=== PATIENT | male | born 1990 | race Caucasian/White ===

== ENCOUNTER 2017-05-03 16:55 | Inpatient (IN) | payer OTHER ==
[~2017-05-03] VITALS: Ht 172.7 cm; Wt 64.5 kg
[~2017-05-03 16:55] MED LIST: CONCERTA36 MG PO; ESCITALOPRAM OX10 MG PO; HYDROXYZINE HCL25 MG PO; NORCO 5-325 TA1 EACH PO
--- NOTE | 2017-05-03 19:13 | NUR ---
DIRECT ADMIT FROM ALISSA'S OFFICE. ABSCESS RIGHT LOWER FACE. IND IN ROOM. IVF AT TKO. MERREM AND VANCO. WARM WET CLOTH TO FACE. DIFLUCAN PO. DILAUDID 8MG PO GIVEN FOR PAIN. NPO AT MIDNIGHT.
--- NOTE | 2017-05-03 19:40 | NUR ---
IN TO SEE PT, PT IN BED, IV INFUSING, VISITOR AT [facility]. CALL LIGHT WITHIN REACH.
--- NOTE | 2017-05-03 19:40 | NUR ---
IN TO MEET PT AND REC REPORT, PT IN BED, STATES PAIN IS BETTER SINCE REC DILAUDID FROM DAY SHIFT RN. VISITER AT BEDSIDE. CALL LIGHT WITHIN REACH.
--- NOTE | 2017-05-03 22:30 | NUR ---
CALL FROM DR. MAXWELL TO UPDATE ON PAIN. INFORMED DR. MAXWELL THAT PT WAS GIVEN A TOTAL OF 8 MG OF DILAUDID FOR DAY SHIFT RN WHICH PT STATES "HELPED A LOT", PT RATED HIS PAIN A 5/10. CONFIRMED IV ABX WERE GIVEN AND GIVEN RESULTS OF WBC. ADVISED DR. MAXWELL THAT PT'S PAIN WAS INCREASING WHEN CHECK ON THE PT AT 2210. PT RATES PAIN A 7/10 AT 2210. RN IN TO GIVE DILAUDID 8 MG AT 2230.
--- NOTE | 2017-05-04 00:56 | NUR ---
IN TO REASSES PT PAIN, PT RATES PAIN A 5/10. PT STATES " PAIN MEDICATION HELPED A LOT WITH MY PAIN". VISITOR LAYING IN BED WITH PT WATCHING TV. PT NOTES THAT ABCESS ON JAW HAS STARTED TO DRAIN. PT HAS BEEN USING HOT COMPRESSES CHANGED BY VISITOR. ADVISED THAT VISITOR SHOULD HANDLE COMPRESSES WITH GLOVES DUE TO SPREAD OF INFECTION. PT AND VISITOR UNDERSTOOD. NO FURTHER NEEDS AT THIS TIME, CALL LIGHT WITHIN REACH.
--- NOTE | 2017-05-04 01:36 | NUR ---
IN TO START ABX, PT RESTING IN BED WATCHING TV, VISITOR IN BED WITH PT, PT ALERT AND PLEASENT. NO APPARENT DISTRESS. FRIENDLY. DISCUSSED NEED FOR NPO STATUS AT [place], PT UNDERSTOOD. PT ASK IF OKAY TO USE CHEWING TABACCO, RN ADVISED NOT OKAY TO USE TABACCO. PT UNDERSTOOD AND STATES HE WILL REFRAIN. RN OFFERED NICOTEINE ALTERNATIVE, PT DECLINED. NO FURTHER NEEDS AT THIS TIME. CALL LIGHT WITHIN REACH.
--- NOTE | 2017-05-04 02:50 | NUR ---
pt resting quietly, appears asleep, rr wnl and unlabored. pt sleeping in hospital bed with girlfriend. lights off and tv on in room.
--- NOTE | 2017-05-04 05:14 | NUR ---
PT HAD UNEVENTFUL SHIFT, IVF AND IV ABX ADMINISTERED. PT GIVEN DILAUDID 8 MG PO AT 2230 FOR FACIAL PAIN, NO FURTHER PAIN MEDICATION REQUIRED. AFIBRILE THROUGHOUT THE SHIFT. R SIDED FACIAL REDNESS AND SWELLING IMPROVED, DRAINAGE PRESENT. WARM COMPRESSES APPLIED WHILE AWAKE. NPO AT AR INCASE OF NEED FOR I&D.
--- NOTE | 2017-05-04 07:35 | NUR ---
RECEIVED BEDSIDE REPORT FROM POPPY/DUANE RN. SWELLING IN RIGHT FACE PRESENT. GIRLFRIEND SLEEPING IN BED WITH PATIENT. EDUCATED ON INFECTION CONTROL. ERNA AND YOHANA PLANNED TO CONTINUE TODAY. WILL AWAIT DR MAXWELL TO KNOW PLAN FOR DAY. SURGERY VS. ABX. NPO NOW.
--- NOTE | 2017-05-04 09:15 | NUR ---
MED REC COMPLETE--PER PATIENT
--- NOTE | 2017-05-04 10:34 | NUR ---
PT BACK TO FLOOR FROM CT SCAN AT 1030. ANXIOUS TO TAKE A SHOWER. C/O FEELING COLD AFTER CT SCAN. WARM BLANKET PROVIDED.
--- NOTE | 2017-05-04 12:00 | NUR ---
PT RESTING IN BED WITH HIS GIRL FRIEND BY HIS SIDE. HE RECOUNTED TO ME HIS STORY, AND HOW HE FELT IT WAS MORE THAN ACNE. IT BEGAN TO SWELL AND ACHE. DR MAXWELL SENT HIM A DIRECT ADMIT FROM HIS OFFICE. PAIN GOES DOWN INTO HIS NECK. HE SEEMS ALITTLE BORED ALREADY. HIS MOTHER WAS BY EARLIER. WILL CONTINUE TO FOLLOW NEEDED
--- NOTE | 2017-05-04 13:38 | NUR ---
DR. MAXWELL IN TO SEE PATIENT. PATIENT TO HAVE I & D TODAY.
--- NOTE | 2017-05-04 13:46 | NUR ---
IV MERRUM INFUSING FOR 3 HOURS, PER DR. MAXWELL. PATIENT IN TO DO PRE-SURGICAL WIPE DOWN.
--- NOTE | 2017-05-04 13:56 | NUR ---
PATIENT UP TO BATHROOM WITH HIBA CLEANSE. ORAL CARE DONE. LINEN CHANGED.
--- NOTE | 2017-05-04 14:07 | NUR ---
PATIENT TO SURGERY, BRI LAFLEUR SENT WITH STRAIGHT TUBING. PATIENT TRANSPORTED VIA WHEELCHAIR.
--- NOTE | 2017-05-04 14:08 | NUR ---
pt off floor for procedure at 1400
--- NOTE | 2017-05-04 15:02 | NUR ---
05/04/17 1502 Caroline Mac [id number] PATIENT ARRIVES TO PACU AWAKE, ALERT AND ORIENTED X3. RESP EVEN AND UNLABORED. MASK AT 6 LITERS. PATIENT TOOK HIS MASK OFF, 100% ON ROOM AIR. PATIENT ALSO C/O BEING COLD, WARM BLANKETS AND BEAR HUGGER ON .
--- NOTE | 2017-05-04 16:00 | NUR ---
pt back to room 114 at 1555. pain controlled well now. continuous pulse ox in place. o2 sat 99% on room air. dressing to right face in place. pt not hungry now but will try apple juice and water.
--- NOTE | 2017-05-04 18:06 | NUR ---
PT IND IN ROOM. YOHANA UMANZOR. IVF AT TKO. GIRLFRIEND AT BEDSIDE. PACKING IN ABSCESS OF RIGHT FACE. COVERED WITH DRESSING. TEE X1.
--- NOTE | 2017-05-04 19:45 | NUR ---
IN TO SEE PT, PT RESTING IN BED. PT REQUEST ICE CREAM. STATES HIS NAUSEA IS BETTER. NO FURTHER NEEDS AT THIS TIME. CALL LIGHT WITHIN REACH.
--- NOTE | 2017-05-04 21:45 | NUR ---
pt rates pain at 6/10, gave dilaudid po for pain.
--- NOTE | 2017-05-04 22:48 | NUR ---
IN TO CHECK ON PT, PT IN BED RESTING WATCHING TV, GF IN BED WITH PT. NO FUTHER NEEDS AT THIS TIME. CALL LIGHT WITHIN REACH.
--- NOTE | 2017-05-05 00:38 | NUR ---
IN TO CHECK ON PT, PT APPEARS TO BE SLEEPING ON THE RT SIDE OF FACE, IV INFUSING. PT'S GF SLEEPING IN BED WITH PT. CALL LIGHT IN PLACE.
--- NOTE | 2017-05-05 01:53 | NUR ---
IN TO CHECK ON PT, IV ABX STARTED, PAIN MEDICATION GIVEN, ICE CREAM REQUESTED AND GIVEN. NO FURTHER NEEDS AT THIS TIME. CALL LIGHT WITHIN REACH.
--- NOTE | 2017-05-05 04:03 | NUR ---
IN TO CHECK ON PT, PT APPEARS TO BE SLEEPING, NO APPARENT DISTRESS. IV INFUSING, CALL LIGHT WITHIN REACH.
--- NOTE | 2017-05-05 05:01 | NUR ---
PT RESTING THROUGH OUT THE SHIFT. DILAUDID PO GIVEN FOR PAIN. NO NAUSEA. DRSG INTACT. IVF AND ABX ADMINISTERED. PT UP TO THE BATHROOM WITH NO ASSIST. AFIBRILE. GF AT BEDSIDE.
--- NOTE | 2017-05-05 07:40 | NUR ---
Patient laying in bed with girlfriend by his side. patient states he isn't hungry. patient had two ice creams and apple juice this am. patient given an ensure to drink. Tooth brush and paste with washcloth and gown set up in room. no other needs at this time. call button in reach.
--- NOTE | 2017-05-05 08:00 | NUR ---
PATIENT STATES " I AM JUST GONNA REST A BIT LONGER THEN I WILL GET UP AND MOVE AROUND". DENIES NEED FOR PAIN MEDICATION AT THIS TIME. DISCUSSED POC FOR DAY. VS STABLE. PACKING IN PLACE C/D/I.
--- NOTE | 2017-05-05 10:18 | NUR ---
PATIENT GIVEN 8MG P.O. DILAUDID FOR RIGHT JAW PAIN. PATIENT IS RESTING IN BED AND DENIES OTHER NEEDS.
--- NOTE | 2017-05-05 11:00 | NUR ---
PATIENT UP AMBULATING IN THE HALLWAY. LINENS CHANGED. TEETH BRUSHED. ENCOURAGED PATIENT TO WASH UP FROM NECK DOWN.
--- NOTE | 2017-05-05 11:36 | NUR ---
PT SITTING IN CHAIR, WITH DRESSING ON CHIN. PAIN IS 7-8, REQUESTED SOME HELP. WENT TO ENGINEER BOOSTER AND EXHAUSTER AND PASS ALONG HIS NEED. GETTING BORED, SEEMS TO BE COPING WELL. WILL CONTINUE TO FOLLOW
--- NOTE | 2017-05-05 17:35 | NUR ---
PATIENT COMPLAINS OF THROWING UP SMALL AMOUNT, ADMINISTERED 8MG PO ZOFRAN. WILL ADMINISTER 1700 MED WHEN NAUSEA IMPROVES.
--- NOTE | 2017-05-05 17:53 | NUR ---
PATIENT STATES " I AM DONE TAKING PILLS, I DON'T WANT THEM". HE PULLS BLANKET OVER HEAD AND THEN SAYS " YOU CAN GO NOW". DISCUSSED WITH PATIENT MEDICATIONS AND IMPORTANCE OF TAKING ANTIBIOTICS. PATIENT'S SIGNIFICANT OTHER REPORTS PATIENT ONLY BEING ABLE TO TAKE A FEW BITES OF FOOD AT A TIME. NOTED SOME EMESIS IN GARBAGE CAN, DID NOT SEE ANY PILLS. PATIENT STATED " I THREW UP ALL THEM PILLS, I CAN'T TAKE ANYMORE". WILL REAPPROACH PATIENT, AND ATTEMPT TO ADMINISTER [address] MAXWELL MADE AWARE BY TELEPHONE BY CHARGE NURSE VICENTE BOND. NO NEW ORDERS AT THIS TIME.
--- NOTE | 2017-05-05 18:30 | NUR ---
PATIENT STATES " I AM NOT NAUSEATED ANYMORE" APPEARS TO BE IN A BETTER MOOD, DISCUSSED PAIN CONTROL WITH PATIENT. PATIENT RATES PAIN 3/10 ON PAIN SCALE. DISCUSSED BENEFITS OF IV TORADOL AND THAT DR. MAXWELL HAD ASKED WHY HE HAD REFUSED IT EARLIER IN THE DAY. DISCUSSED FACE PAIN SCALE, AND TAKING LESS PAIN MEDICATION IF PAIN IS LOWER ON SCALE. PATIENT AGREED TO TORADOL IV AND ADMINISTERED 30 MG IV. NOW RATES PAIN 1-2 OUT OF 10 AND AGREES TO TAKE SHOWER. DISCUSSED IMPORTANCE OF WASHING FACE DIRECTLY WITH HEBACLEANSE. PROVIDED PATIENT WITH CRACKERS TO EAT WITH ANTIBIOITC.
--- NOTE | 2017-05-05 19:01 | NUR ---
PATIENT UP TO SHOWER WITH HIBA CLEANSE.
--- NOTE | 2017-05-05 20:00 | NUR ---
RECEIVED REPORT AROUND 1900. PT WAS IN BED WITH FAMILY AT BEDSIDE. PT DENIED PAIN AT THIS TIME.
--- NOTE | 2017-05-05 21:00 | NUR ---
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 THERE IS A SMALL AMOUNT OF SEROUSANG. DRAINAGE COMING FROM WOUND. ALL LOBES ARE CLEAR, PT STILL DENIES PAIN OR N/V AT THIS TIME.
--- NOTE | 2017-05-06 00:30 | NUR ---
PT SEEMS TO BE SLEEPING AT THIS TIME.
--- NOTE | 2017-05-06 03:31 | NUR ---
PT SEEMS TO BE SLEEPING AT THIS TIME.
--- NOTE | 2017-05-06 04:54 | NUR ---
PT HAD UNEVENTFUL NIGHT. PAIN HAS NOT NEEDED ANY PAIN MEDICATION SO FAR. V/S ARE WNL.
[2017-05-06] MEDS ORDERED: SULFAMETHOXAZO1 EAC1 PO (07:39)
[2017-05-06] MEDS ORDERED: AMOXICILLIN500 MG PO (07:39)
[2017-05-06] MEDS ORDERED: DIFLUCAN200 MG PO (07:39)
[2017-05-06] MEDS ORDERED: HYDROMORPHONE HC4 MG PO (07:40)
[2017-05-06] MEDS ORDERED: IBUPROFEN600 MG PO (07:40)
--- NOTE | 2017-05-06 08:14 | NUR ---
PATIENT SITTING UP IN BED, DR. MAXWELL ROUNDED. PLAN TO DISCHARGE. PHARMACY NOW IN ROOM PROVIDING EDUCATION. PROVIDED PATIENT WITH MORNING MEDICATION. ABSCESS ON FACE APPEARS LESS SWOLLEN, DRAINING SEROSANGUINIOUS DRAINAGE. LUNG SOUNDS CLEAR. SRINIVAS'Jolynn SALINAS.
--- NOTE | 2017-05-09 10:37 | OR ---
[facility] [address], [place] [address] Signed DATE OF SERVICE: 05/04/2017 PREOPERATIVE DIAGNOSIS: Right mandibular facial abscess. POSTOPERATIVE DIAGNOSIS: Right mandibular facial abscess. PROCEDURE PERFORMED: Incision and drainage and debridement of right facial abscess. SURGEON: Susannah Maxwell MD ANESTHESIA: General LMA (Jacinto Main CRNA). INDICATION: This 27-year-old white man was seen by me yesterday in the office on an urgent walk-in basis for a swelling of his right mid mandible area. This was markedly inflamed and tender. It was consistent with abscess. Bret mock has had it for 4 days and self treated with amoxicillin as well as self administered needle attempted drainage. In the office, under local anesthesia, incision and drainage was attempted; however, too uncomfortable for the patient to allow for breakdown of any loculations. He was admitted to the hospital after that and given broad-spectrum antibiotics including vancomycin, Merrem, and Diflucan. Today, his symptoms and findings are improved; however, he still has marked tenderness and swelling in the are a. A CT scan of the maxillofacial area was undertaken showing a liquid center to an inflamed focus of the right mandibular area. This is consistent with abscess. He is admitted to the operating room to undergo incision and drainage and breakdown of locula tions as needed for complete drainage. He understands as does his family the risks of bleeding, infection, nerve injury, and so on. FINDINGS: Indeed there was a multiloculated abscess in the area. Breakdown of the abscess was undertaken. Egress of some purulent fluid was noted. Cultures were obtained. A quarter-inch plain Nu Gauze was packed into the wound. He tolerated it well. PROCEDURE IN DETAIL: The patient was brought to the operating room and given a general anesthetic by LMA technique. Sequential compre ssion device stockings were in place. The face was turned to the left and the facial area was clipped and prepared with a chlorhexidine solution and draped sterilely. Interrogation of the previous incision site showed some purulent material noted. A hemos t at was insinuated into the incision more fully and loculated collections were broken down with all due care. Egress of purulent material was noted. Electronically Signed By: SUSANNAH MAXWELL MD 05/09/17 [facility] PATIENT NAME: FELICITA SHARP OPERATIVE REPORT DATE OF : 89 PHYSICIAN: SUSANNAH MAXWELL MD REPORT #: [id number] REPORT IS CONFIDENTIAL AND NOT TO BE RELEASED WITHOUT AUTHORIZATION [facility] [address] [place] [id number] Signed Cultures were obtained for both aerobes and anaerobes. Once the loculations were broken down, irrigation wa s undertaken with sterile saline. A quarter-inch Nu Gauze was packed into the wound for its hemostatic effect. Gauze was applied and he was ultimately extubated and transported to Recovery in good condition. BLOOD LOSS: Minimal. MD MURIEL Estrada/Maricarmen /[id number] cc: Dr. Jason Sitz Electronically Signed By: SUSANNAH MAXWELL MD 05/09/17 1037 PATIENT NAME: FELICITA SHARP OPERATIVE REPORT DATE OF : 89 PHYSICIAN: SUSANNAH MAXWELL MD REPORT #: [id number] REPORT IS CONFIDENTIAL AND NOT TO BE RELEASED WITHOUT AUTHORIZATION
--- NOTE | 2017-05-22 10:25 | DS ---
[facility] [address], [place] [address] Signed ADMIT DATE: 05/03/2017 DISCHARGE DATE: 05/06/2017 REASON FOR ADMISSION: This 27-year-old white man is self-referred with swelling, erythema, and findings suggestive of abscess in his right mandibular area. He has a schaefer and this may represent a folliculitis. His initial presentation was that of a small pustule which did not improve over time but caused increasing swelling and erythema and progressive severe pain. He had right-sided neck pain. No sign of adenopathy there. Examination in my office showed no sign of intraoral lesion. It is considered most likely a soft tissue abscess of the face. Incision and drainage attempt in the office setting was poorly tolerated and not productive of much purulence. On that basis, he was admitted for further evaluation and care to include intravenous antibiotics and possibly imaging studies. PERTINENT PHYSICAL EXAM: GENERAL: Well developed, well nourished, thin white man who did not look systemically toxic. HEENT: Right mandible is markedly distended and inflamed with a 4 to 5 cm mass. NECK: There is no cervical adenopathy. CHEST: Clear. HEART: Regular without murmur. ABDOMEN: Soft and flat. EXTREMITIES: Without clubbing, cyanosis, or edema. LAB STUDIES: Showed a white count of 11.4. HOSPITAL COURSE: He was admitted and given broad-spectrum antibiotics including meropenem, Diflucan, and Flagyl. The possibility that this represented a tinea type infection with secondary bacterial infection was considered. The following day, he had improvement of his inflammation but still markedly tender and firm well-formed mass was noted. A CT scan was performed, confirming a fluid collection within the substance of the soft tissue of the right mandible area. He subsequently underwent incision and drainage of the site under general anesthesia. Loculations in the area were broken down i n a quarter-inch Nu Gauze wick was placed as well. Broad-spectrum antibiotics were maintained. Gram stain showed no sign of organisms but multiple red cells. Cultures at the time of discharge showed no specific organism. Electronically Signed By: SUSANNAH MAXWELL MD 05/22/17 1025 PATIENT NAME: FELICITA SHARP DISCHARGE SUMMARY DATE OF : 89 PHYSICIAN: SUSANNAH MAXWELL MD REPORT #: [id number] REPORT IS CONFIDENTIAL AND NOT TO BE RELEASED WITHOUT AUTHORIZATION [address] [address] Signed He was transitioned to oral antibiotic Augmentin combined with Flagyl and Diflucan. Oral pain medication was initiated including Dilaudid 4 to 8 mg p.o. q.3 hours p.r.n. pain. Hibiclens soap was employed and it is anticipated he will shave his schaefer off completely as I believe this is the primary source of his problem initially. He will see me back in approximately 3 to 4 weeks in the office and call sooner if there are problems. DISCHARGE MEDICATIONS: Augmentin 500 mg p.o. t.i.d. x5 days. Flagyl 250 mg p.o. t.i.d. x5 days. Diflucan 200 mg 1 tablet p.o. daily x5 days. Also Dilaudid 4 mg, 1 to 2 p.o. q.3 hours p.r.n. pain, #30, no refill. Motrin 600 mg p.o. q.6 hours p.r.n. pain, #60. He will continue to use Hibiclens soap and shave schaefer as previously described. DISCHARGE DIAGNOSIS: Soft tissue abscess of right face (right mid mandibular area) without oral nidus of infection, status post CT scan and subsequent incision and drainage and debridement of abscess cavity. MD MURIEL Estrada/Maricarmen /[id number] cc: Jason Bonilla MD Electronically Signed By: SUSANNAH MAXWELL MD 05/22/17 1025 PATIENT NAME: FELICITA SHARP DISCHARGE SUMMARY DATE OF : 89 PHYSICIAN: SUSANNAH MAXWELL MD REPORT #: [id number] REPORT IS CONFIDENTIAL AND NOT TO BE RELEASED WITHOUT AUTHORIZATION
== END 2017-05-06 08:40 | disposition home or self-care (01) | DRG 603 ==
LOC: MS 16:55
PROVIDERS: ADMIT Surgery
PROC: 0H91XZZ Drainage of Face Skin, External Approach (ICD-10-PCS; principal; 2017-05-04 15:00)
DX: L02.01 Cutaneous abscess of face (principal); L03.211 Cellulitis of face
CPT/HCPCS: 00300; 70488; 85025; 87070; 87075; 87077; 87186; 87205; J1170; J1885; J2185; J2405; J2704; J3010; J3370; J7120; Q9967

== ENCOUNTER 2023-01-24 23:40 | Emergency (ER) | payer SELFPAY ==
[~2023-01-24] VITALS: Ht 172.7 cm; Wt 72.8 kg
[~2023-01-24 23:40] MED LIST changes: +AMOXICILLIN500 MG PO; +DIFLUCAN200 MG PO; +HYDROMORPHONE HC4 MG PO; +IBUPROFEN600 MG PO; +SULFAMETHOXAZO1 EAC1 PO
[2023-01-25] MEDS ORDERED: INDOMETHACIN50 MG PO (01:41)
--- NOTE | 2023-01-25 16:06 | EKG ---
[facility] [address] [facility] [place], [place] [address] Signed Sinus tachycardia Otherwise normal ECG No previous ECGs available Confirmed by GENE GAGNON MD ([id number]) on 01/25/2023 4:06:46 PM Electronically Signed By: GENE GAGNON MD 01/25/23 1606 PATIENT NAME: FELICITA SHARP Electrocardiogram DATE OF : 89 PHYSICIAN: GENE GAGNON MD REPORT #: [id number] REPORT IS CONFIDENTIAL AND NOT TO BE RELEASED WITHOUT AUTHORIZATION
== END 2023-01-25 01:52 | disposition home or self-care (01) ==
LOC: ED 23:40
DX: M10.9 Gout, unspecified (principal)
CPT/HCPCS: 36415; 80053; 81001; 84443; 84550; 85025; 93005; 93010; 96374; 96375; 99283-25; A9270; J1100; J1200; J7121